=== PATIENT | female | born 1960 | race Caucasian/White ===

== ENCOUNTER 2019-01-06 17:05 | Emergency (ER) | payer OTHER ==
[2019-01-06 17:11] VITALS: RESP 18
--- NOTE | 2019-01-06 18:39 | ED ---
General Adult HPI - General Chief complaint: Extremity Injury, Upper Stated complaint: Hand injury Time Seen by Provider: 01/06/19 18:06 Source: patient, RN notes reviewed, old records reviewed Mode of arrival: ambulatory Limitations: no limitations - History of Present Illness Initial comments: 58-year-old female patient lives ED for evaluation of bruits between her second third digit. Patient reports that she does not remember hitting anything, however states that she is very active. Patient's that started off as a small bump and now starting to bruise. Patient denies any other areas of bruising, denies any bleeding. Patient denies any other complaints at this time. Systemic: Pt denies fatigue, fever/chills, rash. Pt denies weakness, night s weats, weight loss. Neuro: Pt denies headache, visual disturbances, syncope or pre-syncope. HEENT: Pt denies ocular discharge or irritation, otalgia, rhinorrhea, pharyngitis or notable lymphadenopathy. Cardiopulmonary: Pt denies chest pain, SOB, heart palpitations, dyspnea on exertion. Abdominal/GI: Pt denies abdominal pain, n/v/d. : Pt denies dysuria, burning w/ urination, frequency/urgency. Denies new onset urinary or bowel incontinence. MSK: Pt denies myalgia, loss of strength or function in extremities. Neuro: Pt denies new onset weakness, paresthesias. - Related Data Allergies Allergy/AdvReac Type Severity Reaction Status Date / Time No Known Allergies Allergy Verified 01/06/19 17:11 Review of Systems ROS Statement: Those systems with pertinent positive or pertinent negative responses have been documented in the HPI. ROS Other: All systems not noted in ROS Statement are negative. Past Medical History Past Medical History: Hypertension History of Any Multi-Drug Resistant Organisms: None Reported Past Surgical History: Orthopedic Surgery, Tubal Ligation Additional Past Surgical History / Comment(s): left knee surgery Past Psychological History: No Psychological Hx Reported Smoking Status: Never smoker Past Alcohol Use History: None Reported Past Drug Use History: None Reported General Exam - General Exam Comments Initial Comments: Constitutional: NAD, AOX3, Pt has pleasant affect. HEENT: NC/AT, trachea midline, neck supple, no lymphadenopathy. Posterior pharynx non erythematous, without exudates. External ears appear normal, without discharge. Mucous membranes moist. Eyes PERRLA, EOM intact. There is no scleral icterus. No pallor noted. Cardiopulmonary: RRR, no murmurs, rubs or gallops, no JVD noted. Lungs CTAB in anterior and posterior snyder. No peripheral edema. Abdominal exam: Abdomen soft and non-distended. Abdomen non-tender to palpation in all 4 quadrants. Bowel sounds active in LLQ. No hepatosplenomegaly. No ecchymosis Neuro: CN II-XII intact. No nuchal rigidity. No raccon eyes, no gerber sign, no hemotympanum. No cervical spinal tenderness. MSK: Mild ecchymoses noted between second third digit. Nontender to palpation. Full active range of motion. Capillary refill less than 2 seconds, sensation intact. No posterior calf tenderness bilaterally, homans sign negative bilaterally. Posterior tibialis and radial pulse +2 bilaterally. Sensation intact in upper and lower extremities. Full active ROM in upper and lower extremities, 5/5 stregnth. Limitations: no limitations Course Vital Signs 01/06/19 17:07 Temperature 98.2 F Pulse Rate 107 H Respiratory 18 Rate Blood Pressure 244/107 O2 Sat by Pulse 98 Oximetry Medical Decision Making - Medical Decision Making 58-year-old female patient presents ED for evaluation of nontender mild amount ecchymoses 22nd third digit. Patient has a history of hypertension. Vital signs displayed hypertension, patient states that she is extremely anxious, administrated anxiolytic. Patient blood pressure improved, will take blood pressure medication and monitor at home. Physical exam displayed mild amount ecchymoses present second third digit on right hand. Nontender. Full active range of motion. No other bruises or ecchymoses. Plain film did not display acute process. Patient not taking blood thinners. Patient discharged, will follow up with primary care for it tomorrow. Return to ER if condition worsens. Case discussed with Dr. Aguilar. Disposition Clinical Impression: Bruise Disposition: HOME SELF-CARE Condition: Stable Instructions (If sedation given, give patient instructions): Hematoma (ED) Additional Instructions: Patient to adhere to previously discussed treatment plan and will take medication(s) as directed. Patient to follow up with PCP in 1-2 days. Patient to return to ED if symptoms do not improve. Follow with primary care provider tomorrow. Return to ER if condition worsens. Is patient prescribed a controlled substance at d/c from ED?: No Referrals: Liza Gregg MD [Primary Care Provider] - 1-2 days
[2019-01-06] MEDS ORDERED: LORazepam 1 MG TAB PO STA (19:07)
--- NOTE | 2019-01-06 19:14 | XR ---
Right hand HISTORY: Ecchymosis and pain 3 views of the right hand Bone mineralization, joint spaces and alignment are maintained. No fracture or dislocation. Some hype rtrophic change present at the proximal interphalangeal joint third digit, small ossific density appe ars well-corticated associated with the joint and is not felt likely to be acute, correlate for point tenderness. IMPRESSION: No acute abnormalities evident.
[2019-01-06 20:45] VITALS: BP 205/105; PULSE 75; TEMP 98
== END 2019-01-06 20:45 | disposition home or self-care (01) ==
LOC: EC 17:05
DX: S60.021A Contusion of right index finger without damage to nail, initial encounter (principal); S60.041A Contusion of right ring finger without damage to nail, initial encounter; Z98.51 Tubal ligation status
CPT/HCPCS: 99284

== ENCOUNTER → 2020-06-26 | Outpatient (CLI) | payer OTHER ==
--- NOTE | 2020-06-30 10:36 | MM ---
Reason for exam: screening (asymptomatic). Last mammogram was performed 4 years and 5 months ago. History: Patient is postmenopausal. Physical Findings: A clinical breast exam by your physician is recommended on an annual basis and results should be correlated with mammographic findings. MG Screening Mammo w CAD Bilateral CC and MLO view(s) were taken. XCCL view(s) were taken of the right breast. Prior study comparison: January 19, 2016, bilateral MG screening mammo w CAD. There are scattered fibroglandular densities. No significant changes when compared with prior studies. ASSESSMENT: Negative, BI-RAD 1 RECOMMENDATION: Routine screening mammogram of both breasts in 1 year.
== END | disposition home or self-care (01) ==
LOC: RADMAMWWP 15:38
PROVIDERS: ATTEND Family Medicine
DX: Z12.31 Encounter for screening mammogram for malignant neoplasm of breast (principal)
CPT/HCPCS: 77067

== ENCOUNTER 2020-07-24 06:14 | Day surgery (SDC) | payer OTHER ==
[2020-07-22 11:03] VITALS: BMI 35.1
[~2020-07-24 06:14] MED LIST: LACTATED RINGERS 1,000 ML IV SCH; LIDOCAINE 1% (10MG/ML) FOR IV START INTRADERMA PRN
[2020-07-24] MEDS ORDERED: MIDAZOLAM 2 MG/2 ML VIAL IVP ONE (07:10)
[2020-07-24 07:15] VITALS: RESP 16; TEMP 98.4
[2020-07-24] MEDS ORDERED: LACTATED RINGERS 1,000 ML IV ONE (07:15)
[2020-07-24] MEDS ORDERED: LIDOCAINE 1% INJ 10MG/ML (20 ML MDV) ONE (07:16)
[2020-07-24] MEDS ORDERED: PROPOFOL 10 MG/ML 20 ML VIAL IV ONE (07:16)
--- NOTE | 2020-07-24 07:32 | P.PCN ---
Date of Procedure: 07/24/20 Procedure(s) Performed: BRIEF HISTORY: Patient is a 60-year-old pleasant female scheduled for an elective colonoscopy as a part of evaluation of positive cologuard . She has no prior history of colonoscopy. . PROCEDURE PERFORMED: Colonoscopy snare polypectomy. PREOPERATIVE DIAGNOSIS: Positive cologuard. IV sedation per Anesthesia. PROCEDURE: After informed consent was obtained, the patient, was brought into the endoscopy unit. IV sedation was administered by Anesthesia under continuous monitoring. Digital rectal examination was normal. Initially the Olympus CF-160 flexible video colonoscope was then inserted in the rectum, gradually advanced into the cecum without any difficulty. Careful examination was performed as the scope was gradually being withdrawn. Ileocecal valve and the appendiceal orifice were visualized and appeared normal. Prep was excellent. Mucosa of the cecum appeared normal. In the base of the cecum there was a 5 limited polyp that was removed by snare polypectomy. In the transverse colon there was a 1.5 cm pedunculated polyp removed by snare polypectomy. Rest of the, ascending colon, transverse colon, descending colon, sigmoid colon, and rectum appeared normal. Retroflexion was performed in the rectum and no lesions were seen. The patient tolerated the procedure well. IMPRESSION: 5 mm cecal polyp status post-polypectomy 1.5 cm transverse colon polyp status post polypectomy RECOMMENDATIONS: Findings of this examination were discussed with the patient as well as a her family. She was advised to follow with the biopsy. If the biopsy shows an adenoma she can have a repeat colonoscopy in 3 years.
[2020-07-24 08:11] VITALS: BP 190/113; PULSE 87
== END 2020-07-24 08:18 | disposition home or self-care (01) ==
LOC: ORWHC2ENDO 06:14
PROVIDERS: ATTEND Internal Medicine Gastroenterology
DX: D12.0 Benign neoplasm of cecum (principal); D12.3 Benign neoplasm of transverse colon; I10 Essential (primary) hypertension; Z79.82 Long term (current) use of aspirin; Z79.899 Other long term (current) drug therapy
CPT/HCPCS: 88305; 45385; J2250; J2001; J2704